=== PATIENT | female | born 1960 | race Caucasian/White ===

== ENCOUNTER → 2020-06-11 09:29 | Outpatient (CLI) | payer OTHER, SELFPAY ==
--- NOTE | ~2020-06-11 | CT_ITS ---
EXAMINATION: CT chest abdomen pelvis w con DATE: 06/11/2020 10:22 INDICATION: Ovarian cancer. TECHNIQUE: Computed tomography (CT) of the chest, abdomen, and pelvis was performed with 100 mL Omnip aque 350 intravenous contrast. Automated exposure control and iterative reconstruction technique were employed. The dose-length product was 1329.33 mGy-cm. COMPARISON: None FINDINGS: CHEST CT: The lungs demonstrate mild atelectasis. No pleural effusion. The heart size is normal. No pericardial effusion. There are bilateral breast implants. There are no pathologically enlarged lymph nodes. The re are changes of anterior fusion procedure in cervical spine. ABDOMEN/PELVIS CT: The liver is normal. There are changes of cholecystectomy. There are 3 hypodense masses in the spleen measuring up to 1.7 cm. The pancreas and adrenal glands are normal. There is cortical thinning of th e kidneys. There are peroneal masses near the rectum measuring up to 1.9 x 1.7 cm. There is a diverti ng transverse colostomy. There are peritoneal masses in right upper quadrant. There is a 3.0 x 2.7 cm predominantly cystic peritoneal mass in right abdomen. There are no dilated loops of bowel. There ar e no pathologically enlarged lymph nodes. There is no free intraperitoneal fluid. There are changes o f posterior fusion procedure from L2 to S1. IMPRESSION: 1. Peritoneal masses, consistent with carcinomatosis. 2. Splenic masses, which may be granulomatous disease or metastatic disease. Reviewed, dictated and finalized at location A.
[2020-06-11 09:59] LABS: Estimated Glomerular Filt Rate 56
== END ==
PROVIDERS: Visit Provider Obstetrics & Gynecology Gynecologic Oncology
DX: C56.1 Malignant neoplasm of right ovary (principal); C56.2 Malignant neoplasm of left ovary; R97.1 Elevated cancer antigen 125 [CA 125]
CPT/HCPCS: 36415; 71260; 74177; Q9967